=== PATIENT | female | born 1990 | race Caucasian/White ===

== ENCOUNTER 2020-03-26 15:51 | Emergency (ER) | payer OTHER, SELFPAY ==
--- NOTE | 2020-03-26 15:59 | ED.SKABFB ---
HPI - Skin/Abscess/Foreign Bdy General Chief complaint: Skin/Abscess/Foreign Body Stated complaint: pos skin infection Time Seen by Provider: 03/26/20 16:02 Source: patient and RN notes reviewed Mode of arrival: ambulatory Limitations: no limitations History of Present Illness HPI narrative: 30 year old female who presents to express care with complaints of lesion to the right distal forearm ulnar side which has become increasingly irritated in the past week. Patient states that she has had this lesion which resembles filiform wart which is 0.5cm in diameter with excoriation around base. Patient states that she has used OTC freeze off treatment, creams and patches to area but seems to keep getting bigger. Request antibiotic today due amount of irritation of skin around base of lesion. Patient states no tingling or numbness to fingers, strong radial pulse, nail beds sarahi briskly. complaint: lesion Onset (ago): month(s) (6) Tetanus up to date: yes Location: RUE Severity: mild Severity scale (1-10): 3 Quality: aching Pain Consistency: intermittent Relieving factors: none Exacerbating factors: other (picking of tissue) Context: other (wart) Associated symptoms: itching Treatments prior to arrival: OTC topical medication (freeze off, wart remover liquid and patches) Related Data Allergies Allergy/AdvReac Type Severity Reaction Status Date / Time No Known Allergies Allergy Verified 03/26/20 15:57 Review of Systems Review of Systems: Narrative: CONSTITUTIONAL: Denies fever, chills, or sweats. EYES: Denies visual changes, redness, or discharge. ENT: Denies rhinorrhea, congestion, sore throat, or otalgia. CARDIOVASCULAR: Denies chest pain, palpitations, or edema. RESPIRATORY: Denies cough or dyspnea. GASTROINTESTINAL: Denies abdominal pain, nausea, vomiting, or diarrhea. GENITOURINARY: Denies dysuria or hematuria. SKIN: filiform wart to right distal forearm MUSCULOSKELETAL: Denies back pain, joint pain, or myalgia. NEUROLOGIC: Denies headache, numbness, or weakness. PSYCHIATRIC: Denies anxiety or depression. All systems reviewed & are unremarkable except as noted in HPI and below PMFSH Surgical History Surgical History (Updated 03/26/20 @ 16:05 by Va Carbajal NP) H/O sinus surgery Family History Family History (Updated 03/26/20 @ 16:08 by Va Carbajal NP) Father Hypertension Heart disease Grandparent Diabetes mellitus Cerebrovascular accident Social History Social History (Updated 03/26/20 @ 17:08 by Va Carbajal NP) Smoking status: Never smoker Living arrangements: with family Gender identity (if verbalized by the patient): Female Comments At time of signature, agree with nursing past medical, surgical, social and family history. There is no relevant family history pertinent to the presenting complaint Exam Narrative: Exam Narrative: GENERAL: Well-appearing, well-nourished, and in no acute distress. HEAD: Normocephalic, atraumatic. EYES: PERRLA and EOMI. ENT: Nares clear, no rhinorrhea or epistaxis. Mucous membranes moist. NECK: Supple.no lymphadenopathy CHEST: Clear to auscultation. No respiratory distress. HEART: Regular rate and rhythm. No murmur heard. Normal peripheral pulses. ABDOMEN: Soft, nontender, nondistended, normal active bowel sounds. EXTREMITIES: Normal range of motion. No edema. SKIN: Warm, dry, raised filiform wart to right distal forearm ulnar side with irritated red tissue at base of lesion,itchy. NEURO: No focal deficits. Alert and oriented x3. MDM - Skin/Abscess/Foreign Bdy Differential Diagnosis Differential diagnosis: Likely abscess of skin or subcutaneous tissue, dermatophytosis and other (verrucae vulgaris) Medical Records Attestation: I reviewed the patient's medical records. Critical Care Time Critical Care Time Critical Care Time: No Discharge Plan Discharge Clinical Impression: Verrucae vulgaris Patient Disposition: Home, Self-Care C
[2020-03-26 16:02] VITALS: BP 121/68; PULSE 102; RESP 20; TEMP 36.6; O2SAT 100
== END 2020-03-26 16:33 | disposition home or self-care (01) ==
PROVIDERS: Emergency Provider Registered Nurse
DX: B07.9 Viral wart, unspecified (principal)
CPT/HCPCS: 99203; G0463

== ENCOUNTER 2022-03-01 09:42 | Outpatient (CLI) | payer OTHER, SELFPAY ==
[2022-03-01 18:55] LABS: Basophils Percent Auto 0.4 % (0.2-1.2); Eosinophils Absolute Auto 0.1 K/mm3 (0-0.3); Eosinophils Percent Auto 1.2 % (0-4.4); Hematocrit 42.3 % (37.0-47.0); Hemoglobin 13.5 g/dL (12.0-15.0); Immature Granulocyte Absolute 0.02 K/mm3 (0.00-0.031); Immature Granulocyte Percent A 0.3 % (0-0.5); Lymphocytes Absolute Auto 2.56 K/mm3 (0.9-3.2); Lymphocytes Percent Auto 33.5 % (18.3-44.2); Mean Corpuscular HGB Conc 31.9 g/dl (32-36); Mean Corpuscular Hemoglobin 28.3 pg (26-34); Mean Corpuscular Volume 88.7 fl (80-100); Mean Platelet Volume 11.1 fl (7.4-10.4); Monocytes Absolute Auto 0.5 K/mm3 (0.1-0.6); Monocytes Percent Auto 5.9 % (2.6-8.5); Neutrophils Absolute Auto 4.5 K/mm3 (1.3-6.7); Neutrophils Percent Auto 58.7 % (45.5-73.1); Platelet Count Result 310 k/mm3 (150-375); Red Blood Count 4.77 M/mm3 (4.2-5.4); Red Cell Distribution Width 12.8 % (11.5-14.5); White Blood Count 7.6 K/mm3 (4.5-10.0)
[2022-03-01 19:45] LABS: Alanine Aminotransferase 38 U/L (6-35); Alkaline Phosphatase 79 U/L (38-126); Anion Gap 9 mmol/L (8-16); Aspartate Amino Transferase 32 U/L (14-36); Bilirubin,Total 0.4 mg/dL (0.2-1.3); Blood Urea Nitrogen 14 mg/dL (7-17); Calcium 9.5 mg/dL (8.4-10.2); Carbon Dioxide 26 mmol/L (22-30); Chloride 104 mmol/L (98-107); Cholesterol 175 mg/dL (0-200); Estimated Glomerular Filt Rate > 60; Glucose 91 mg/dL (65-110); HDL Direct 64 mg/dL; Potassium 4.2 mmol/L (3.4-5.0); Sodium 139 mmol/L (137-145); Triglycerides 81 mg/dL (<150)
[2022-03-01 20:03] LABS: LDL Cholesterol Direct 58 mg/dL
== END 2022-03-01 09:43 | disposition home or self-care (01) ==
LOC: ANHGOSHLAB 09:43
PROVIDERS: PCP Nurse Practitioner; Visit Provider Nurse Practitioner
DX: E03.9 Hypothyroidism, unspecified (principal); Z13.6 Encounter for screening for cardiovascular disorders; Z13.220 Encounter for screening for lipoid disorders; E55.9 Vitamin D deficiency, unspecified; R53.83 Other fatigue; Z79.899 Other long term (current) drug therapy; F41.9 Anxiety disorder, unspecified
CPT/HCPCS: 36415; 80053; 80061; 82306; 84443; 85025

== ENCOUNTER 2024-12-24 12:31 | Emergency (ER) | payer OTHER, SELFPAY ==
--- NOTE | ~2024-12-24 | CT_ITS ---
CT abdomen pelvis w con Ordering provider: Isi Cheek MD History: 34 years Female with . pain, uti . Comparison: ` Technique: CT abdomen and pelvis with IV and without oral contrast. Automated exposure control and it erative reconstruction technique were employed. The dose-length product was 242.27 mGy-cm. 100 mL Omn ipaque 350 was given IV. Findings: VISUALIZED LOWER CHEST: Normal. Calcified granuloma in the left lung base. UPPER ABDOMINAL ORGANS: Liver: Normal. Gallbladder: Normal. Spleen: Normal. Stomach/duodenum: Normal. Pancreas: Normal. Adrenals: Normal. Kidneys: Normal. PELVIC ORGANS: The bladder is normal. IUD is seen in the uterus. BOWEL AND MESENTERY: Colon: No evidence of diverticulitis. The appendix is not demonstrated. Small Bowel: Normal. No obstruction. Peritoneum/mesentery: No free air. Trace of free fluid is seen in the pelvis. No mesenteric lymphaden opathy. RETROPERITONEUM: Normal aorta. No retroperitoneal lymphadenopathy. MUSCULOSKELETAL: Superficial soft tissues: The superficial soft tissues are normal. Bones: Normal spine. IMPRESSION: 1. No evidence of appendicitis, diverticulitis or intestinal obstruction. Reviewed, dictated and finalized at location A.
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
--- OUTSIDE RECORDS SUMMARY | 2024-12-24 12:34 | XMS_ITS | Clinical Summary ---
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 Gender Identity Not on file Sexual Orientation Not on file Plan of Treatment Health Maintenance Due Date Last Done Comments Hepatitis C Virus (HCV) Screening 1989 TdaP Immunization 1989 Hepatitis B Immunization (1 of 3 - 19+ 3-dose series) 01/10/2008 Pap Smear 2010 Cervical Cancer Screening (CCS) 2019 HPV/Cotest 2019 Influenza Immunization (#1) 2024 SARS-COV-2 Immunization ( - season) 2024 Respiratory Syncytial Virus (RSV) Immunization (Adult) (1 - 1-dose 75+ series) 01/10/2064 Meningococcal Immunization (ACWY) Aged Out No longer eligible based on patient's age to complete this topic Pneumococcal Immunization Combined Aged Out No longer eligible based on patient's age to complete this topic Rotavirus Immunization Aged Out No lo nger eligible based on patient's age to complete this topic Insurance MEDICAID AETNA [facility]
--- OUTSIDE RECORDS SUMMARY | 2024-12-24 12:34 | XMS_ITS | Encounter Summary ---
Author Organization [facility] Address [address] [facility] [place] [address] Care Team Providers Care Crane Hooker Name Role Phone Unavailable Primary Care Provider Unavailabl e Reason for Visit * Reason Onset Date Comments Question 12/30/2017 Encounter Details Date Type Department Care Team (Late st Contact Info) Description 12/30/2017 Telephone [facility] [address] [place] [address] Stacia Mccabe MD [address] [facility] [address] [place] [address] Question Social History Tobacco Use Types Packs/Day Years Used Date Smoking Tobacco: Never Smokeless Tobacco: Never Alcohol Use Standard Drinks/Week Comments No 0 (1 standard drink = 0.6 oz pur e alcohol) Comments No Sex and Gender Information Value Date Recorded Sex Assigned at Not on file 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 Answer Date of Assessment Author No 01/29/2017 3:47 AM Marlen Nayak RN * Is person blind or have serious difficulty seeing? Answer Date of Assessment Author No 01/29/2017 3:47 AM Marlen Nayak RN * Does person have serious difficulty walking/climbing stairs? Answer Date of Assessment Author No 01/29/2017 3:47 AM CDT Marlen Treadwell RN * Does person have difficulty dressing/bathing? Answer Date of Assessment Author No 01/29/2017 3:47 AM CDT Marlen Treadwell RN * Does person have difficulty doing errands alone? Answer Date of Assessment Author No 01/29/2017 3:47 AM CDT Marlen Treadwell RN documented as of this encounter Mental Status * Does person have difficulty concentrating/remembering/making decisions? Answer Entry Date Author No 01/29/2017 3:47 AM CDT Marlen Treadwell RN documented in this encounter Miscellaneous Notes * Telephone Encounter - Lynne Boateng RN - 12/30/2017 4:36 PM CDT Left voice mail for patient that Dr Mccabe office returning her call * Telephone Encounter - Rebeca Schultz - 12/30/2017 11:34 AM CDT Pt called in stating she would like to speak to Dr Mccabe or her nurse regarding questions she has about medications. Pt callback# [phone] documented in this encounter Plan of Treatment Not on file documented as of this encounter Visit Diagnoses Not on filedocumented in this encounter
--- OUTSIDE RECORDS SUMMARY | 2024-12-24 12:34 | XMS_ITS | Encounter Summary ---
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 Answer Date of Assessment Author No 01/29/2017 3:47 AM Marlen Nayak RN * Does person have difficulty doing errands alone? Answer Date of Assessment Author No 01/29/2017 3:47 AM Marlen Nayak RN documented as of this encounter Mental Status * Does person have difficulty concentrating/remembering/making decisions? Answer Entry Date Author No 01/29/2017 3:47 AM Marlen Nayak RN documented in this encounter Plan of Treatment Not on file documented as of this encounter Visit Diagnoses Not on filedocumented in this encounter
--- OUTSIDE RECORDS SUMMARY | 2024-12-24 12:34 | XMS_ITS | Referral Summary ---
Author Organization [facility] [address] [facility] Address [address] [place] [address] Care Team Providers Care Nutrition Educator Name Role Phone Unknown, Notinfile Primary Care Provider Unavail able Encounters Date Type Department Care Team Description 12/11/2024 5:55 PM CDT E-Visit [address] [address] Cierra Walsh, SURINDER Your Medications 12/11/2024 Patient Self-Triage [facility]/ Physicians [address] [place] [phone] Mychart, Generic Provider 11/27/2024 5:00 PM CDT Telemedicine [address] [address] Paula Marquez, SURINDER Recurrent cold sores (Primary Dx) 11/27/2024 Patient Self-Triage [facility]/ Physicians [address] [place] [phone] Mychart, Generic Provider 11/26/2024 Patient Self-Triage [facility]/ Physicians [address] [place] [phone] Mychart, Generic Provider 11/26/2024 10:45 AM CDT E-Visit [address] [address] Paula Marquez, SURINDER Your Medications 11/26/2024 Patient Self-Triage [facility]/ Physicians [address] [place] [phone] Mychart, Generic Provider 11/18/2024 Results Follow-[place] [address] [place] [address] Blanca Ge, 11/16/2024 Results Follow-Up [address] [place] [address] Blanca Ge DO 11/15/2024 3:43 PM CDT - 11/15/2024 11:59 PM CDT Hospital Encounter [facility] [address] [place] [address] Discharge Disposition: Discharge to home or self care 11/15/2024 2:10 PM CDT Lab [facility] [address] [place] [address] Dysuria 11/15/2024 Orders Only [facility] [address] [place] [address] Blanca Ge DO Dysuria (Primary Dx) 11/15/2024 1:20 PM CDT Procedure visit [facility] [address] [place] [address] Blanca Ge DO 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) (Primary Dx) 11/11/2024 Telephone [facility] [address] [place] [address] Blanca Ge DO Medical Question/Miscellaneo us 11/10/2024 11:00 AM CDT Ancillary Procedure [facility] [address] [place] [address] Pelvic pain in female 11/09/2024 Results Follow-Up [address] [place] [address] Blanca Ge DO 11/01/2024 2:04 PM CDT - 11/01/2024 11:59 PM CDT Hospital Encounter [facility] [address] [place] [address] Screening for malignant neoplasm of cervix; Screen for sexually transmitted diseases Discharge Disposition: Discharge to home or self care 11/01/2024 Orders Only [facility] [address] [place] [address] Blanca Ge DO Pelvic pain in female (Primary Dx) 11/01/2024 1:30 PM CDT Office Visit [facility] [address] [place] [address] Blanca Ge DO Encounter for annual routine gynecological examination (Primary Dx); Screen for sexually transmitted diseases; Screening for malignant neoplasm of cervix; Pelvic pain from Last 3 Months Allergies Active Allergy Reactions Criticality Noted Date Comments Nitrofurantoin Other (See comments) Low 07/11/2023 Flu like symptoms- fever, body aches, chills, nausea. All stopped when she stopped the medicine. Medications FLUoxetine (PROzac) 20 mg capsule Take 1 capsule (20 mg total) by mouth daily Active copper (ParaGard T 380A) 380 square mm IUD 1 each by intrauterine route 8 Active valACYclovir (VALTREX) 1 gram tabletIndicati ons:Recurrent cold sores Take 2 tabs (2000 mg) 2 times a days for 1 day as directed. 4 tablet 5 5 Active amoxicillin-cl avulanate (AUGMENTIN) 875-125 mg per tablet Take 1 tablet by mouth 2 (two) times a day 20 tablet 5 Active cephalexin (KEFLEX) 500 mg capsule Take 1 capsule (500 mg total) by mouth 2 (two) times a day for 5 days 10 capsule 5 12/02/19 25 benzonatate (TESSALON) 200 mg capsule Take 1 capsule (200 mg total) by mouth 3 (three) times a day as needed for cough for up to 7 days 20 capsule 5 12/19/19 25 Active Problems Problem Noted Date Diagnosed Date Cervical dysplasia 07/21/2017 Overview (07/11/2023): Overview: 10/2014 ASCUS cannot rule out HGSIL, colpo 11/01/14 neg, no biopsies done Pap 06/2016 NIL Immunizations Immunization Administration Dates Next Due Tdap 06/18/2015 Social History Tobacco Use Types Packs/Day Years Used Date Smoking Tobacco: Never Smokeless Tobacco: Never Tobacco Cessation:Counseling Given: Not Answered Comments No Sex and Gender Information Value Date Recorded Sex Assigned at Not on file Legal Sex Female 11:39 AM CDT Gender Identity Female 11/18/2023 11:45 AM CDT Sexual Orientation Straight 11/27/2024 6: 22 PM CDT Last Filed Vital Signs Vital Sign Reading Time Taken Comments Blood Pressure 134/78 11/15/2024 1:29 PM CDT Pulse 109 03/01/2024 3:35 PM CDT Temperature - - Respiratory Rate 18 03/01/2024 3:35 PM CDT Oxygen Saturation 98% 03/01/2024 3:35 PM CDT Inhaled Oxygen Concentration - - Weight 60.8 kg (134 lb) 11/15/2024 1:29 PM CDT Height 165.1 cm (5' 5 ) 11/01/2024 1:27 PM CDT Body Mass Index 22.3 11/01/2024 1:27 PM CDT Plan of Treatment Not on file Procedures Procedure Name Priority Date/Time Associated Diagnosis Comments SURGICAL PATHOLOGY Routine 11/15/2024 11 :44 AM CDT URINALYSIS, MICROSCOPIC ONLY Routine 11/15/2024 10:01 AM CDT Dysuria URINALYSIS AND REFLEX TO MICROSCOPIC AND CULTURE Routine 11/15/2024 10:01 AM CDT Dysuria US PELVIS W ENDOVAGINAL Schedule Routine, Read Routine (OP Routine) 11/10/2024 11:57 AM CDT Pelvic pain in female HIGH RISK HPV DNA DETECTION WITH GENOTYPING Routine 11/01/2024 3:50 PM CDT Screening for malignant neoplasm of cervix TRICHOMONAS VAGINALIS PCR Routine 11/01/2024 3:50 PM CDT Screen for sexually transmitted diseases N. GONORRHOEAE/C. TRACHOMATIS AMPLIFICATION Routine 11/01/2024 3:50 PM CDT Screen for sexually transmitted diseases PAP AND HIGH RISK HPV, REFLEX TO GENOTYPING Routine 11/01/2024 11:04 AM CDT Screening for malignant neoplasm of cervix from Last 3 Months Results * Surgical pathology (11/15/2024 11:44 AM CDT) Cervix, biopsy 11/15/2024 11 :44 AM CDT 11/16/2024 11:44 AM CDT Narrative 11/17/2024 6:08 PM CDT [facility] results best viewed via link to PDF [facility] Department of Pathology [address] [place] [address] Note to Patients: This report may contain a detailed description of human tissue sent by a health care provider to the laboratory for pathologic evaluation. The content of this report is essential for diagnosis and may provide important critical findings. This information may be unfamiliar to patients to review without a medical professional present. It is advised that the patient review this report in the presence of a health care provider who can answer questions and explain the details. Final Report Patient Name: JIN DELEON Address: [address] [place] [address] Gender: F : 1990 (Age: 34) Service: Location: N : [id number] [facility] #: [id number] Patient Type: SPECIMEN Taken: 11/15/2024 Received: 11/16/2024 Accessioned: 11/16/2024 Reported: 11/17/2024 Physician(s):Blanca Ge D.O. Diagnosis: A. Cervix, 6 o'clock, biopsy: - Low-grade squamous intraepithelial lesion (mild dysplasia/KHURRAM I). B. Cervix, 12 o'clock, biopsy: - Squamous metaplasia. Kenzie Joyce M.D. Report Electronically Reviewed and Signed Out By Kenzie Joyce M.D. 11/17/2024 18:08:04 Specimen(s) Received: A: Cervical at 6 o'clock B: Cervical at 12 o'clock Microscopic Description: A. Microscopic examination of the 6 o'clock cervical biopsy, examined at multiple levels show squamous mucosal fragment with changes that are consistent with a low-grade squamous intraepithelial lesion (mild dysplasia/KHURRAM I) there is expansion of the basal layer by cells with enlarged hyperchromatic nuclei with occasionally abundant amounts of clear cytoplasm, and rare mitoses within the lower third of the epithelium. B. Microscopic examination of the 12 o'clock cervical biopsy, examined at multiple levels show a single fragment of inflamed endocervical mucosa with areas of squamous metaplasia. No evidence of dysplasia or malignancy. Clinical History: LGSIL Procedure: colposcopy with biopsy Gross Description: The specimen is submitted in two formalin containers labeled JIN DELEON . A. The first container is labeled cervical 6 o'clock . It is 2 montelongo tissue fragments measuring 1 mm. All in A. B. The second container is labeled cervical 12 o'clock . It is an approximate 0.1 cc aggregate of transparent mucoid material and 2 minute flecks of montelongo tissue. All in B. T.A. Leonela Caceres, P.A./Jean-Claude Grove MD PhD REPORT IMAGES AND SCANNED DOCUMENTS, IF INCLUDED, ONLY VIEWABLE IN PDF VERSION OF REPORT The performance characteristics of some immunohistochemical stains, fluorescence in-situ hybridization tests and immunophenotyping by flow cytometry cited in this report (if any) were determined by the Surgical Pathology Department at [facility] as part of an ongoing quality control assistant program and in compliance with federally mandated regulations drawn from the Clinical Laboratory Improvement Act of 1988 (CLIA '88). Some of these tests rely on the use of analyte specific reagents and are subject to specific labeling requirements by the US Food and Drug Administration. Such diagnostic tests may only be performed in a facility that is certified by the Department of Health and Human Services as a high complexity laboratory under CLIA '88. The FDA has determined that such clearance or approval is not necessary. This test is used for clinical purposes. It should not be regarded as investigational or for research. Nevertheless, federal rules concerning the medical use of analyte specific reagents require that the following disclaimer be attached to the report: This test was developed and its performance characteristics determined by the Surgical Pathology Department [facility]. It has not been cleared or approved by the U. S. Food and Drug Administration. Note for decalcified specimens: This assay has not been validated on decalcified tissues. Results should be interpreted with caution given the possibility of false negativity on decalcified specimens Blanca Stearnsth Luma DO LAB PATHOLOGY ORDERABLE S Final Result * (ABNORMAL) Urinalysis reflex to microscopic and culture Urine (11/15/2024 10:01 AM CDT) Color, ur Yellow Yellow Comment:Testing performed by : [address] [address] Clarity, ur Turbid(A) Clear [facility] CH Comment:Testing performed by : [address], [address] Specific gravity, ur 1.009 1.003 - 1.030 [facility] CH Comment:Testing performed by : [address], [address] pH, urine 7.0 CERNER Comment: Interpretive Data U rine pH is affected by diet, medications, systemic acid-base disturbances, and renal tubular function. pH may affect urinary stone formation. For example, urine pH below 6.0 may help reduce the tendency for calcium phosphate stones and pH greater than 6.0 may reduce the tendency for uric acid stone formation. Source: [facility] [employer] Current Interpretive Data was last revised on 2017 Testing performed by: [address] [address] Protein, ur ql Negative Negative [facility] CH Comment:Testing performed by : [address] [address] Glucose, ur ql Negative Negative [facility] CH Comment:Testing performed by : [address] [address] Ketones, ur Negative Negative [facility] CH Comment:Testing performed by : [address] [address] Bilirubin, ur 2+(A) Negative [facility] Comment:Testing performed by : [facility], [address] [place] [address]., [address] Blood, ur Trace(A) Negative [facility] Comment:Testing performed by : [address] [address] Urobilinogen, ur <2.0 <2.0 mg/dL [facility] Comment:Testing performed by : [address] [address] Nitrite, ur Positive(A) Negative [facility] Comment:Testing performed by : [address] [address] Leukocyte esterase, ur Negative Negative [facility] Comment:Testing performed by : [address], [address] UA reflex comment Reflex to microscopic UA will be performed. [facility] Comment:Testing performed by : [address], [address] Urine 11/15/2024 10:0 1 AM CDT 11/15/2024 6:50 PM CDT Blanca Ge DO LAB MICROBIOLOGY - GENE RAL ORDERABLES Final Result [facility] [address] Department [place] [address] * (ABNORMAL) Urinalysis, microscopic only (11/15/2024 10:01 AM CDT) WBC, ur 0-5 0 - 5 /HPF Comment:Testing performed by : [address] [address] RBC, ur 0-2 0 - 2 /HPF [facility] Comment:Testing performed by : [address] [address] Epithelial cells, squamous, ur 1-5 0 - 5 /HPF [facility] Comment:Testing performed by : [address], [address] Mucous, ur Present(A) [facility] Comment:Testing performed by : [address] [address] Culture Reflex Comment Reflex conditions for urine culture (WBC >10) not met. [facility] PATEL Comment:Testing performed by : [facility], [address] [place]., [address] Urine 11/15/2024 10:0 1 AM CDT 11/15/2024 9:21 PM CDT us Blanca Ge DO LAB URINE ORDERABLES Fi nal Result [facility] [address] [address] Department [place] [address] * US Pelvis W Endovaginal (11/10/2024 11:57 AM CDT) Anatomical Region Laterality Modality Pelvis N/A Ultrasound 11/16/2024 6:41 AM CDT Narrative 11/16/2024 6:42 AM CDT EXAM DESCRIPTION: US PELVIS W ENDOVAGINAL REASON FOR STUDY: Pelvic Pain. Check IUD placement Pelvic pain check iud TECHNIQUE: Grayscale ultrasound of the pelvic contents was performed with transabdominal and transvaginal transducer. COMPARISON: None. FINDINGS: UTERUS: The uterus is anteverted. The uterus is homogenous in echotexture and measures 8.0 x 5.7 x 4.3 cm. ENDOMETRIUM: The endometrium measures 1.0 in thickness. There is an IUD that extends to the fundal endometrium. RIGHT OVARY: The right ovary measures 1.5 x 3.3 x 3.1 cm. There is documentation of color Doppler flow in the right ovary. The right ovary appears unremarkable. LEFT OVARY: The left ovary measures 1.5 x 1.2 x 2.4 cm. There is documentation of color Doppler flow in the left ovary. The left ovary appears unremarkable. PELVIC FLUID: There is no evidence of free fluid in the pelvis. OTHER: No other significant findings. IMPRESSION: No acute abnormality. IUD in expected position. THIS IS AN ELECTRONICALLY VERIFIED FINAL REPORT 11/16/2024 6:42 AM - Electronically signed by Neymar Del Rosario M.D. CH: AMANDA Report ID: [id number] Reading Location: [id number] Procedure Note Neymar Del Rosario Jr., MD - 11/16/2024 EXAM DESCRIPTION: US PELVIS W ENDOVAGINAL REASON FOR STUDY: Pelvic Pain. Check IUD placement Pelvic pain check iud TECHNIQUE: Grayscale ultrasound of the pelvic contents was performed with transabdominal and transvaginal transducer. COMPARISON: None. FINDINGS: UTERUS: The uterus is anteverted. The uterus is homogenous inechotexture and measures 8.0 x 5.7 x 4.3 cm. ENDOMETRIUM: The endometrium measures 1.0 in thickness. There is an IUD that extends to the fundal endometrium. RIGHT OVARY: The right ovary measures 1.5 x 3.3 x 3.1 cm. There is documentation of color Doppler flow in the right ovary. The right ovary appears unremarkable. LEFT OVARY: The left ovary measures 1.5 x 1.2 x 2.4 cm. There is documentation of color Doppler flow in the left ovary. The left ovaryappears unremarkable. PELVIC FLUID: There is no evidence of free fluid in the pelvis. OTHER: No other significant findings. IMPRESSION: No acute abnormality. IUD in expected position. THIS IS AN ELECTRONICALLY VERIFIED FINAL REPORT 11/16/2024 6:42 AM - Electronically signed by Neymar Del Rosario M.D. CH: AMANDA Report ID: [id number] Reading Location: [id number] Balnca Ge DO [facility] US PROCEDURES Final Result * (ABNORMAL) High Risk HPV DNA Detection with Genotyping (Molecular component) (11/01/2024 3:50 PM CDT) HPV HR 16 Not Detected Not Detected [facility] Comment:Testing performed by : [facility], [address] [place]., [address] HPV HR 18 Not Detected Not Detected [facility] PATEL Comment:Testing performed by : [facility], [address] [place]., [address] HPV HR Non 16/18 Detected(A) Not Detected [facility] PATEL Comment: Interpretive Data Nucleic acid amplification for detection of high-risk Human Papilloma virus (HPV) is performed by the [employer] 6800 HPV test. This assay specifically detects HPV-16 and HPV-18 genotypes. The following HPV genotypes are detected as high-risk HPV: HPV-31, 33, 35, ,39, 45, 51, 52, 56, 58, 59, 66, and 68. This assay has been approved by the [place] Food and Drug Administration for detection of HPV in cervical specimens collected by a physician using an endocervical brush/spatula or cervical broom and placed in the ThinPrep Pap Test PreservCyt collection containers. The performance characteristics of this test have been verified by the [facility] Molecular Infectious Disease laboratory. Correlate with separately reported cytology results, as applicable. Interpretive data last revised 23 Testing performed by: [facility], [address] [place]., [address] Endocervical 11/01/2024 3:50 PM CDT 11/02/2024 2:06 PM CDT Charlie ELENA CH - 11/04/2024 4:59 AM CDT Clinical history and diagnosis->Liquid-based PAP test with high risk HPV test- Z12.4 Number of vials->1 Testing type->Screening Last menstrual period (date if known)->10/20/24 Contraceptive use->IUD Blanca Ge DO LAB BODY FLUIDS AND STO OLS ORDERABLES Final Result [facility] [address] [address] Department [place] [address] [facility] * N. gonorrhoeae/C. trachomatis Amplification Thin prep-Endocervical (11/01/2024 3:50 PM CDT) C. trachomatis Not Detected [facility] Comment:Testing performed by : [facility], [address] [place]., [address] N. gonorrhoeae Not Detected [facility] Comment: Interpretive Data This assay detects Chlamydia trachomatis and Neisseria gonorrhoeae by nucleic acid amplification testing (NAAT). This assay has been cleared by the [place] Food and Drug administration. The performance characteristics of this test have been verified by the [facility] Molecular Infectious Disease laboratory. The performance characteristics of this test have not been evaluated in individuals less than 14 years of age. Current Interpretive Data was last revised on 2023. Testing performed by: [facility], [address] [place]., [address] Thin prep-Endocervica l 11/01/2024 3:50 PM CDT 11/02/2024 2:06 PM CDT Blanca Ge DO LAB MICROBIOLOGY - GENE RAL ORDERABLES Final Result Performing Organization Address City/[facility]/ZIP Co de Phone Number [facility] [address] [address] Department [place] [address] [facility] * Trichomonas vaginalis PCR Thin prep-Endocervical (11/01/2024 3:50 PM CDT) Trichomonas DNA Not Detected [facility] Comment: Interpretive Data This assay detects Trichomonas vaginalis by nucleic acid amplification testing (NAAT). This assay has been cleared by the [place] Food and Drug administration. The performance characteristics of this test have been verified by the [facility] Molecular Infectious Disease laboratory. The performance of this test has not been evaluated in individuals less than 18 years of age. Current Interpretive Data was last revised on 2023. Testing performed by: [facility], [address] [place]., [address] Thin prep-Endocervica l 11/01/2024 3:50 PM CDT 11/02/2024 2:06 PM CDT Blanca Ge DO LAB MICROBIOLOGY - GENE RAL ORDERABLES Final Result Performing Organization Address City/[facility]/ZIP Co de Phone Number [facility] [address] Department [place] [address] [facility] * (ABNORMAL) Pap and High Risk HPV and Genotyping (Cytology Component) (11/01/2024 11:04 AM CDT) Thin prep (Pap test) 11/01/2024 11:04 AM CDT 11/01/2024 11:04 AM CDT Narrative PATHOLOGY CH - 11/04/2024 9:35 PM CDT [facility] Department of Pathology [address] [place] [phone] Final Report with Addendum Note to Patients: This report may contain a detailed description of human tissue sent by a health care provider to the laboratory for pathologic evaluation. The content of this report is essential for diagnosis and may provide important critical findings. This information may be unfamiliar to patients to review without a medical professional present. It is advised that the patient review this report in the presence of a health care provider who can answer questions and explain the details. Patient Name: JIN DELEON Address: [address] [place] [address] Gender: F : 1990 (Age: 34) Service: Location: [facility] : [id number] [facility] #: [id number] Patient Type: [facility] SPECIMEN Taken: 11/01/2024 Received: 11/01/2024 Accessioned:: 11/02/2024 Reported: 11/04/2024 Physician(s): Felipe Flower D.O. Diagnosis: SOURCE OF SPECIMEN SCREENING THIN PREP IMAGED PAP w/ HPV: STATEMENT OF ADEQUACY - Specimen satisfactory for interpretation; endocervical/transformation zone component absent or insufficient GENERAL CATEGORIZATION: - Epithelial cell abnormality INTERPRETATION: - Low grade squamous intraepithelial lesion (LSIL) encompassing HPV/mild dysplasia/KHURRAM I STEVE Valenzuela(ASCP)Kenzie Joyce M.D. Report Electronically Reviewed and Signed Out By Kenzie Joyce M.D. 11/04/2024 21:35:26Addenda: HPV Test Interpretation HPV HR 16- Not Detected HPV HR 18- Not Detected HPV HR non 16/18- Detected Interpretive Data Nucleic acid amplification for detection of high-risk Human Papilloma virus (HPV) is performed by the [employer] 6800 HPV test. This assay specifically detects HPV-16 and HPV-18 genotypes. The following HPV genotypes are detected as high-risk HPV: HPV-31, 33, 35, 39, 45, 51, 52, 56, 58, 59, 66, and 68. This assay has been approved by the [place] Food and Drug Administration for detection of HPV in cervical specimens collected by a physician using an endocervical brush/spatula or cervical broom and placed in the ThinPrep Pap Test PreservCyt collection containers. The performance characteristics of this test have been verified by the [facility] Molecular Infectious Disease laboratory. Correlate with reported cytology results, as applicable. Interpretive data last revised 23 STEVE Valenzuela(ASCP)Report Electronically Reviewed and Signed Out By STEVE Valenzuela(ASCP) 11/04/2024 11:17:25 Specimen(s) Received: A: SCREENING THIN PREP IMAGED PAP w/ HPV Clinical History: Last Menstrual Period: 10/20/24 Contraceptive History: IUD The Pap test is a screening test used to aid in the detection of cervical cancer and its precursors. It should not be the sole means by which malignant and premalignant lesions are diagnosed. Both false negative and false positive results may occur. It also has poor sensitivity for the detection of endometrial lesions and should not be used to evaluate suspected endometrial abnormalities. For these reasons it is most important to obtain Pap tests at regular intervals. The performance characteristics of some immunohistochemical stains, fluorescence in-situ hybridization tests and immunophenotyping by flow cytometry cited in this report (if any) were determined by the Surgical Pathology Department at [facility] as part of an ongoing quality control assistant program and in compliance with federally mandated regulations drawn from the Clinical Laboratory Improvement Act of 1988 (CLIA '88). Some of these tests rely on the use of analyte specific reagents and are subject to specific labeling requirements by the US Food and Drug Administration. Such diagnostic tests may only be performed in a facility that is certified by the Department of Health and Human Services as a high complexity laboratory under CLIA '88. The FDA has determined that such clearance or approval is not necessary. This test is used for clinical purposes. It should not be regarded as investigational or for research. Nevertheless, federal rules concerning the medical use of analyte specific reagents require that the following disclaimer be attached to the report: This test was developed and its performance characteristics determined by the Surgical Pathology Department [facility]. It has not been cleared or approved by the U. S. Food and Drug Administration. Blanca Ge DO LAB CYTOLOGY ORDERABLES Final Result PATHOLOGY [address] [place] [address] from Last 3 Months Insurance [facility] [employer] [facility] Care Teams Nutrition Educator Relationship Specialty Start Date End Date Unknown, Notinfile PCP - General 09/22/23
--- OUTSIDE RECORDS SUMMARY | 2024-12-24 12:34 | XMS_ITS | Clinical Summary ---
Author Organization [address] lt Address [address] [place] [address] Care Team Providers Care Latin American Studies Director Name Role Phone Unknown, Notinfile Primary Care Provider Unavail able Allergies Active Allergy Reactions Criticality Noted Date [...] neg, no biopsies done Pap 06/2016 NIL Encounters Date Type Department Care Team Description 12/11/2024 5:55 PM CDT E-Visit [address] [phone] Cierra Walsh, SHIFTMAN Your Medications 12/11/2024 Patient Self-Triage [facility] Health[facility]/ Physicians [address] [place] [phone] Mychart, Generic Provider 11/27/2024 5:00 PM CDT Telemedicine [address] [phone] Paula Marquez, SURINDER Recurrent cold sores (Primary Dx) 11/27/2024 Patient Self-Triage [facility] [address] [place] [phone] Mychart, Generic Provider 11/26/2024 10:45 AM CDT E-Visit [address] [phone] Paula Marquez, SURINDER Your Medications 11/26/2024 Patient Self-Triage [facility] [address] [place] [phone] Mychart, Generic Provider 11/26/2024 Patient Self-Triage [facility] [address] [place] [phone] Mychart, Generic Provider 11/18/2024 Results Follow-Up [address] [address] Blanca Ge, DO 11/16/2024 Results Follow-Up [address] [address] Blanca Ge, DO 11/15/2024 3:43 PM CDT - 11/15/2024 11:59 PM CDT Hospital Encounter [address] [address] Discharge Disposition: Discharge to home or self care 11/15/2024 2:10 PM CDT Lab [facility] [address] [place] [address] Dysuria 11/15/2024 1:20 PM CDT Procedure visit [facility] [address] [place] [address] Blanca Ge DO 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) (Primary Dx) 11/15/2024 Orders Only [facility] [address] [place] [address] Blanca Ge DO Dysuria (Primary Dx) 11/11/2024 Telephone [facility] [address] [place] [address] Blanca Ge DO Medical Question/Miscellaneo us 11/10/2024 11:00 AM CDT Ancillary Procedure [facility] [address] [place] [address] Pelvic pain in female 11/09/2024 Results Follow-Up [address] [address] Blanca Ge DO 11/01/2024 2:04 PM CDT - 11/01/2024 11:59 PM CDT Hospital Encounter [facility] [address] [place] [address] Screening for malignant neoplasm of cervix; Screen for sexually transmitted diseases Discharge Disposition: Discharge to home or self care 11/01/2024 1:30 PM CDT Office Visit [facility] [address] [place] [address] Blanca Ge DO Encounter for annual routine gynecological examination (Primary Dx); Screen for sexually transmitted diseases; Screening for malignant neoplasm of cervix; Pelvic pain 11/01/2024 Orders Only [facility] [address] [place] [phone] Blanca Ge DO Pelvic pain in female (Primary Dx) from Last 3 Months Immunizations Immunization Administration Dates Next Due Tdap 06/18/2015 Surgical History Surgery Date Site/Laterality Comments SECTION Medical History Medical History Date Comments Depression Social History Tobacco Use Types Packs/Day Years Used Date Smoking Tobacco: Never Smokeless Tobacco: Never Tobacco Cessation:Counseling Given: Not Answered Comments No Sex and Gender Information Value Date Recorded Sex Assigned at Not on file Legal Sex Female 11:39 AM CDT Gender Identity Female 11/18/2023 11:45 AM CDT Sexual Orientation Straight 11/27/2024 6: 22 PM CDT Obstetrics History Para Term AB IAB SAB Ectopic Multiple Livin g Live Births 5 3 3 0 2 0 2 0 0 3 3 Date Outcome GA Total Labor Labor/2nd/3rd Weight Sex Type Anes PTL Fouzia A1 A5 Name Clin SAB SAB 2012 Term 39w 0d 3.062 kg (6 lb 12 oz) M C-S j incis Epidur al N Livin g Complications:Failure to Pro jonnie in First Stage 2014 Term 40w 3d 0h 07m 0h 07m 3.275 kg (7 lb 3.5 oz) F Epidur al Livin g 6 9 Coy er Said DO Delivery Location:[facility] 2016 Term 40w 3d 0h 02m 0h 02m 2.98 kg (6 lb 9.1 oz) F Epidur al Livin g 9 9 TOSOV TONNY,B MEI GIRL BROOK E Stacia Maher MD Delivery Location:[facility] Last Filed Vital Signs Vital Sign Reading [...] 11/01/2024 1:27 PM CDT Plan of Treatment Health Maintenance Due Date Last Done Comments Depression Screening 1990 Hepatitis C Screening 1990 Varicella Vaccines (1 of 2 - 13+ 2-dose series) 2002 Hepatitis B Screening 2007 Influenza Vaccine (Season Ended) 2025 DTaP/Tdap/Td Vaccine (2 - Td or Tdap) 06/18/2025 06/18/2015 Cervical Cancer Screening 11/01/20252024, 11/01/2024 Regular Well Visit/Exam 18-64 11/01/2025 11/01/2024 HPV Vaccines Aged Out No longer eligi ble based on patient's age to complete this topic Pneumococcal vaccine <65 Aged Out No longer eligible based on patient's age to complete this topic Procedures Procedure Name Priority Date/Time Associated Diagnosis [...] AM CDT Narrative 11/17/2024 6:08 PM CDT EPIC results best viewed via link to PDF [facility] Department of Pathology [address] [place] [id number] Note to Patients: This report may [...] Final Report Patient Name: JIN DELEON Address: [address] [place] [address] Gender: F : 1990 (Age: 34) Service: Location: [facility] : [id number] [facility] #: [id number] Patient Type: SPECIMEN Taken: 11/15/2024 Received: 11/16/2024 [...] determined by the Surgical Pathology Department at [facility] as part of an ongoing quality assurance qa lab technician program and in compliance with federally mandated [...] characteristics determined by the Surgical Pathology Department [facility]. It has not been cleared or approved by the U. S. Food and Drug Administration. Note for decalcified specimens: This assay has not been validated on decalcified tissues. Results should be interpreted with caution given the possibility of false negativity on decalcified specimens Blanca Ge DO LAB PATHOLOGY ORDERABLE S Final Result * (ABNORMAL) Urinalysis reflex to microscopic and culture Urine (11/15/2024 10:01 AM CDT) Color, ur Yellow Yellow Comment:Testing performed by : [address] [address] Clarity, ur Turbid(A) Clear [facility] Comment:Testing performed by : [facility], [address] [place] [address], [address] Specific gravity, ur 1.009 1.003 - 1.030 [facility] CH Comment:Testing performed by : [address], [address] pH, urine 7.0 [facility] CH Comment: Interpretive Data U rine pH is affected by diet, medications, systemic acid-base disturbances, and renal tubular function. pH may affect urinary stone formation. For example, urine pH below 6.0 may help reduce the tendency for calcium phosphate stones and pH greater than 6.0 may reduce the tendency for uric acid stone formation. Source: [facility] Current Interpretive Data was last revised on 2017 Testing performed by: [address] [address] Protein, ur ql Negative Negative [facility] Comment:Testing performed by : [address], [address] Glucose, ur ql Negative Negative [facility] Comment:Testing performed by : [address], [address] Ketones, ur Negative Negative [facility] Comment:Testing performed by : [address] [address] Bilirubin, ur 2+(A) Negative [facility] Comment:Testing performed by : [address], [address] Blood, ur Trace(A) Negative [facility] Comment:Testing performed by : [address], [address] Urobilinogen, ur <2.0 <2.0 mg/dL [facility] Comment:Testing performed by : [address] [address] Nitrite, ur Positive(A) Negative [facility] Comment:Testing performed by : [address], [address] Leukocyte esterase, ur Negative Negative [facility] Comment:Testing performed by : [address], [address] UA reflex comment Reflex to microscopic UA will be performed. [facility] Comment:Testing performed by : [address], [address] Urine 11/15/2024 10:0 1 AM CDT 11/15/2024 6:50 PM CDT us Blanca Ge DO LAB MICROBIOLOGY - GENE RAL ORDERABLES Final Result [facility] [address] Department [place] [address] * (ABNORMAL) Urinalysis, microscopic only (11/15/2024 10:01 AM CDT) WBC, ur 0-5 0 - 5 /HPF Comment:Testing performed by : [address], [address] RBC, ur 0-2 0 - 2 /HPF [facility] Comment:Testing performed by : [address], [address] Epithelial cells, squamous, ur 1-5 0 - 5 /HPF [facility] Comment:Testing performed by : [address], [address] Mucous, ur Present(A) [facility] Comment:Testing performed by : [address], [address] Culture Reflex Comment Reflex conditions for urine culture (WBC >10) not met. [facility] Comment:Testing performed by : [address], [address] Urine 11/15/2024 10:0 1 AM CDT 11/15/2024 9:21 PM CDT us Blanca Ge DO LAB URINE ORDERABLES Fi nal Result [facility] [address] [address] Department [place] [address] * US Pelvis W Endovaginal (11/10/2024 11:57 [...] Del Rosario M.D. CH: AMANDA Report ID: [id number] Reading Location: [id number] Procedure Note Neymar Del Rosario Jr., MD [...] Del Rosario M.D. CH: AMANDA Report ID: [id number] Reading Location: [place] [address] us Blanca Ge DO [facility] US PROCEDURES Final Result * (ABNORMAL) High Risk HPV DNA Detection with Genotyping (Molecular component) (11/01/2024 3:50 PM CDT) HPV HR 16 Not Detected Not Detected [facility] Comment:Testing performed by : [facility], [address] [facility] [place]., [address] HPV HR 18 Not Detected Not Detected [facility] Comment:Testing performed by : [facility], [address] [facility] [place]., [address] HPV HR Non 16/18 Detected(A) Not Detected [...] this test have been verified by the [facility] Molecular Infectious Disease laboratory. Correlate with separately reported cytology results, as applicable. Interpretive data last revised 23 Testing performed by: [facility], [address] [place]., [address] Endocervical 11/01/2024 3:50 PM CDT 11/02/2024 2:06 PM CDT Narrative [facility] - 11/04/2024 4:59 AM CDT Clinical history and diagnosis->Liquid-based PAP test with high risk HPV test- Z12.4 Number of vials->1 Testing type->Screening Last menstrual period (date if known)->10/20/24 Contraceptive use->IUD Blanca Ge DO LAB BODY FLUIDS AND STO OLS ORDERABLES Final Result [facility] [address] [address] [address] Department [place] [address] [facility] * N. gonorrhoeae/C. trachomatis Amplification Thin prep-Endocervical (11/01/2024 3:50 PM CDT) C. trachomatis Not Detected [facility] Comment:Testing performed by : [facility], [address] [place] [address]., [address] N. gonorrhoeae Not Detected [facility] Comment: Interpretive Data This assay detects Chlamydia trachomatis and Neisseria gonorrhoeae by nucleic acid amplification testing (NAAT). This assay has been cleared by the [place] Food and Drug administration. The performance characteristics of this test have been verified by the [facility] Molecular Infectious Disease laboratory. The performance characteristics of this test have not been evaluated in individuals less than 14 years of age. Current Interpretive Data was last revised on 2023. Testing performed by: [facility], [address] [place]., [address] Thin prep-Endocervica l 11/01/2024 3:50 PM CDT 11/02/2024 2:06 PM CDT Blanca Ge LAB MICROBIOLOGY - GENE RAL ORDERABLES Final Result Performing Organization Address City/[facility]/ZIP Co de Phone Number [facility] [address] [address] Department [place] [address] [facility] * Trichomonas vaginalis PCR Thin prep-Endocervical (11/01/2024 3:50 PM CDT) Trichomonas DNA Not Detected [facility] Comment: Interpretive Data This assay detects Trichomonas vaginalis by nucleic acid amplification testing (NAAT). This assay has been cleared by the [place] Food and Drug administration. The performance characteristics of this test have been verified by the [facility] Molecular Infectious Disease laboratory. The performance of this test has not been evaluated in individuals less than 18 years of age. Current Interpretive Data was last revised on 2023. Testing performed by: [facility], [address] [place]., [address] Thin prep-Endocervica l 11/01/2024 3:50 PM CDT 11/02/2024 2:06 PM CDT Blanca Ge LAB MICROBIOLOGY - GENE RAL ORDERABLES Final Result Performing Organization Address City/[facility]/ZIP Co de Phone Number [facility] [address] [address] [place] [address] [facility] * (ABNORMAL) Pap and High Risk HPV and Genotyping (Cytology Component) (11/01/2024 11:04 AM CDT) Thin prep (Pap test) 11/01/2024 11:04 AM CDT 11/01/2024 11:04 AM CDT Narrative PATHOLOGY CH - 11/04/2024 9:35 PM CDT [facility] Department of Pathology [address] [place], [place] [id number] Final Report with Addendum Note to Patients: [...] the details. Patient Name: JIN DELEON Address: [address] [place] [address] Gender: F : 1990 (Age: 34) Service: Location: N : [id number] Hospital #: [id number] Patient Type: [facility] SPECIMEN Taken: 11/01/2024 Received: 11/01/2024 Accessioned:: 11/02/2024 [...] this test have been verified by the [facility] Molecular Infectious Disease laboratory. Correlate with [...] determined by the Surgical Pathology Department at [facility] as part of an ongoing quality assurance qa lab technician program and in compliance with federally mandated [...] characteristics determined by the Surgical Pathology Department [facility]. It has not been cleared or approved by the U. S. Food and Drug Administration. us Blanca Ge DO LAB CYTOLOGY ORDERABLES Final Result PATHOLOGY [address] [place] [address] from Last 3 Months Insurance [employer] [place] [employer] [employer] [place] [place] Care Teams Latin American Studies Director Relationship Specialty Start Date End Date Unknown, Notinfile PCP - General 09/22/23
--- OUTSIDE RECORDS SUMMARY | 2024-12-24 12:34 | XMS_ITS | Clinical Summary ---
Author Organization [facility] Address [address] [place] [address] Care Team Providers Care Signal Mechanic Name Role Phone Unavailable Primary Care Provider Unavailabl e Source Comments [facility],non-owned Affiliates and Associated Physician Practices is amultiple site organization consisting of ambulatory clinics and hospital sitesin [place], [place], [place] and [place]. This disclosure is being madepursuant to the Care Everywhere program and may not contain all information available regarding this patient. Last updated 18.[facility] Allergies No known active allergies Medications * Be aware that medications may not be up to date on this document. Alwaysverify current medications with the patient. PARAGARD INTRAUTERINE COPPER IUD 8 Active Probiotic Product (PROBIOTIC DAILY PO) Active escitalopram (LEXAPRO) 10 MG tablet Take 1 tablet by mouth once daily 30 tablet 11 9 Active FLUoxetine (PROZAC) 10 MG capsuleIndication s:Depression Take 1 capsule by mouth once daily Reasons: Depression 30 capsule 11 9 Active Active Problems Problem Noted Date Diagnosed Date Cervical dysplasia 07/21/2017 Overview (07/23/2018): Overview: 10/2014 ASCUS cannot rule out HGSIL, colpo 11/01/14 neg, no biopsies done Pap 06/2016 NIL History of section 01/29/2017 Resolved Problems Problem Noted Date Diagnosed Date Resolved Date Threatened labor at term 07/17/2015 Prolonged latent phase of labor 01/29/2017 Tachycardia 01/29/2017 care following vaginal delivery 01/29/2017 Vaginal after delivery 01/29/2017 Immunizations Immunization Administration Dates Next Due TDAP (7yrs+) 06/18/2015 Family History Medical History Relation Name Comments Hypertension Father Relation Name Status Comments Father Social History Tobacco Use Types Packs/Day Years Used Date Smoking Tobacco: Never Smokeless Tobacco: Never Tobacco Cessation:Counseling Given: Yes Alcohol Use Standard Drinks/Week Comments No 0 (1 standard drink = 0.6 oz pur e alcohol) Comments No Sex and Gender Information Value Date Recorded Sex Assigned at Not on file Legal Sex Female 5:42 AM [employer] Gender Identity Not on file Sexual Orientation Not on file Last Filed Vital Signs Vital Sign Reading Time Taken Comments Blood Pressure 118/76 09/25/2018 1:44 PM [employer] Pulse 113 11/18/2017 12:19 PM CDT Temperature 36.8 C (98.2 F) 11/18/2017 12:19 PM CDT Respiratory Rate 16 11/18/2017 12:19 PM CDT Oxygen Saturation 98% 11/18/2017 12:19 PM CDT Inhaled Oxygen Concentration - - Weight 61.2 kg (135 lb) 09/25/2018 1:44 PM [facility] [employer] Height 165.1 cm (5' 5 ) 09/25/2018 1:44 PM [facility] [employer] Body Mass Index 22.47 09/25/2018 1:44 PM [employer] Plan of Treatment Health Maintenance Due Date Last Done Comments HEPATITIS C SCREENING 01/05/2007 HEPATITIS B VACCINE (1 of 3 - 19+ 3-dose series) 01/10/2008 COVID-19 VACCINE ( - 2023-2 5 season) 2024 DEPRESSION SCREENING 08/18/2024 INFLUENZA VACCINE (Season Ended) 2025 DTAP/TDAP/TD VACCINES (2 - T d or Tdap) 06/18/2025 06/18/2015 ZOSTER VACCINE (1 of 2) 2039 HIV SCREENING Completed 06/26/2016, 05/03/2015 HIB VACCINE Aged Out No longer eligi ble based on patient's age to complete this topic HPV VACCINE Aged Out No longer eligi ble based on patient's age to complete this topic MENINGOCOCCAL (Group B) VACCINE SHARED DECISION-MAKING Aged Out No longer eligible based on patient's age to complete this topic MENINGOCOCCAL GROUPS A/C/Y/W VACCINE Aged Out No longer eligible b ased on patient's age to complete this topic PNEUMOCOCCAL VACCINE Aged Out No long er eligible based on patient's age to complete this topic Procedures Procedure Name Priority Date/Time Associated Diagnosis Comments HIV-1 HIV-2 ANTIGEN/ANTIBODY Routine 06/26/2016 4:04 PM [employer] from Last 3 Months or Most Recently Relevant to Health Maintenance Results * HIV-1 HIV-2 ANTIGEN/ANTIBODY (06/26/2016 4:04 PM [employer]) Pathologist [facility] HIV Antigen/Antibody 4th Generation NON-REACT KANE NON-REACT KANE [facility] ([facility]) Comment: HIV-1 antigen and HIV-1/HIV-2 antibodies were not detected. There is no laboratory evidence of HIV infection. PLEASE NOTE: This information has been disclosed to you from records whose confidentiality may be protected by state law. If your state requires such protection, then the state law prohibits you from making any further disclosure of the information without the specific written consent of the person to whom it pertains, or as otherwise permitted by law. A general authorization for the release of medical or other information is NOT sufficient for this purpose. For additional information please refer to http://education.ConnectSoft/faq/GZW504 (This link is being provided for informational/ educational purposes only.) The performance of this assay has not been clinically validated in patients less than 2 years old. Test Performed at: [facility] [id number] [place] [address] MARCUS ROMERO DO,MPH 06/26/2016 4:04 PM [facility] [employer] 06/26/2016 4:04 PM [employer] Stacia Mccabe MD LAB - HEMATOLOGY ORDERABLES Edit ed Result - Final [facility] ([facility]) [id number] from Last 3 Months or Most Recently Relevant to Health Maintenance Insurance [facility] [employer] [facility] Address: [place] [phone] [place] [address] [facility] Address: [facility] [address] [place] [address] Advance Directives * Full Code (Latest Code Status on File) Date Activated Date Inactivated Comments 01/29/2017 3:34 AM 01/31/2017 4:06 PM * Full Code Date Activated Date Inactivated Comments 07/17/2015 10:04 PM 07/20/2015 2:53 PM * Full Code Date Activated Date Inactivated Comments 07/17/2015 7:56 PM 07/17/2015 10:04 PM * Full Code Date Activated Date Inactivated Comments 07/08/2015 12:52 AM 07/08/2015 2:04 AM * Full Code Date Activated Date Inactivated Comments 07/05/2015 2:29 PM 07/05/2015 4:37 PM
[2024-12-24 12:39] VITALS: BP 117/72; PULSE 77; RESP 16; TEMP 36.6; O2SAT 100
--- NOTE | 2024-12-24 13:49 | ED.GENADULT ---
HPI - General Adult General Chief complaint: Unspecified Stated complaint: requesting CT scan Time Seen by Provider: 12/24/24 13:47 Source: patient Mode of arrival: ambulatory Limitations: no limitations History of Present Illness HPI narrative: 34 years old white female came to the ED requesting CT scan of the abdomen. Patient was seen at urgent care last night and was told that she have kidney infection and need to go to the emergency room to get CT scan her out pyelonephritis. Patient report fever, body aches last night. Currently patient feeling weak and tired. She denies any fever, chills, nausea, vomiting. She reports slight suprapubic tenderness, no radiation of pain. Patient was seen at urgent care last night, started on Bactrim 100 b.i.d. for 7 days. Related Data Home Medications ?Medication ?Instructions ?Recorded ?Confirmed ?Last Taken ?Type loratadine 10 mg tablet (Claritin) 10 mg PO DAILY PRN 04/02/22 11/06/22 Unknown History fluticasone propionate 50 1 spray intranasal DAILY PRN 04/30/22 11/06/22 Unknown History mcg/actuation nasal spray,suspension (Flonase Allergy Relief) lisdexamfetamine 40 mg capsule 40 mg PO QAM 11/05/22 11/06/22 Unknown History (Vyvanse) Allergies Allergy/AdvReac Type Severity Reaction Status Date / Time No Known Allergies Allergy Verified 08/06/22 14:29 Review of Systems Review of Systems: All systems reviewed & are unremarkable except as noted in HPI and below PMFSH Past Medical History Medical History ADHD Anxiety Surgical History Surgical History H/O sinus surgery Family History Family History Father Hypertension Heart disease Grandparent Diabetes mellitus Cerebrovascular accident Other Anxiety Depression Social History Social History Smoking status: Never smoker Alcohol intake: never Substance use: never Substance use type: does not use Lack of Transportation: No Lack of Food: Never True Current Housing: I Have Housing Concerned About Future Housing: No Difficulty Paying Gas/Electric Bills: No Difficulty Paying for Meds: No Currently Unemployed: No Education: Master's Degree or Higher Difficulty w/ Childcare or Family Care: No Living arrangements: with family Occupation/Education: occupation Gender identity (if verbalized by the patient): Female Agree to blood products: Yes Exam Narrative: General appearance: Well-developed, well-nourished Skin: Normal color Head: Normocephalic, nontraumatic Eyes: Clear conjunctiva ENT: Oropharynx normal, ears normal, nose normal Neck: Supple, nontender Chest and respiratory: Airway patent, no respiratory distress, no accessory muscle use Heart: Regular rate/rhythm Abdomen: Soft, slight suprapubic tenderness, no guarding or rebound, no organomegaly, quiet bowel sounds Vascular: Normal peripheral pulses, normal capillary refill. Musculoskeletal: Normal range of motion, nontender back Neurologic: Alert and oriented ?3, ADMISSION LIAISON is normal as tested, no gross motor deficit Course Vital Signs Vital signs: Vital Signs Temperature 36.6 C 12/24/24 12:39 Pulse Rate 77 12/24/24 12:39 Respiratory Rate 16 12/24/24 12:39 Blood Pressure 117/72 12/24/24 12:39 Pulse Oximetry 100 12/24/24 12:39 Temperature 36.6 C 12/24/24 12:39 Pulse Rate 77 12/24/24 12:39 Respiratory Rate 16 12/24/24 12:39 Blood Pressure 117/72 12/24/24 12:39 Pulse Oximetry 100 12/24/24 12:39 Medical Decision Making [facility] Narrative Medical decision making narrative: Patient came with urinary symptoms and fever started last night, was discharged on Bactrim, and was told to come to the emergency room to rule out pyelonephritis, patient denies any nausea or vomiting Vital signs are stable Physical examination showing slight suprapubic tenderness Differential diagnosis urinary tract infection, Blood workup today includes CBC, CMP showed no significant abnormality Urinalysis showed 1+ leukocyte Estrace CT abdomen and pelvis with IV contrast showed no acute abnormalities Diagnosis urinary tract infection Discharged on Pyridium, continue Bactrim The pt was discharged to home.the pt,s condition upon discharge was fair,education was provided to the pt in reference to the final impression,discharge study results,treatment,prognosis and need for follow up . Vital Signs Vital Signs: Vital Signs Temperature 36.6 C 12/24/24 12:39 Pulse Rate 77 12/24/24 12:39 Respiratory Rate 16 12/24/24 12:39 Blood Pressure 117/72 12/24/24 12:39 Pulse Oximetry 100 12/24/24 12:39 Temperature 36.6 C 12/24/24 12:39 Pulse Rate 77 12/24/24 12:39 Respiratory Rate 16 12/24/24 12:39 Blood Pressure 117/72 12/24/24 12:39 Pulse Oximetry 100 12/24/24 12:39 Lab Data 12/24/24 14:25 12/24/24 14:25 Labs: Lab Results 12/24/24 12/24/24 Range/Units 14:25 14:38 WBC 6.6 (4.5-10.0) K/mm3 RBC 4.39 (4.2-5.4) M/mm3 Hgb 13.0 (12.0-15.0) g/dL Hct 39.4 (37.0-47.0) % MCV 89.7 (80-100) fl MCH 29.6 (26-34) pg MCHC 33.0 (32-36) g/dl RDW 12.3 (11.5-14.5) % Plt Count 220 (150-375) k/mm3 MPV 9.0 (7.4-10.4) fl Immature Gran % (Auto) 0.5 (0-0.5) % Neut % (Auto) 66.7 (45.5-73.1) % Lymph % (Auto) 23.3 (18.3-44.2) % [place] % (Auto) 7.8 (2.6-8.5) % Eos % (Auto) 1.2 (0-4.4) % Baso % (Auto) 0.5 (0.2-1.2) % Lymph # (Auto) 1.53 (0.9-3.2) K/mm3 [place] # (Auto) 0.5 (0.1-0.6) K/mm3 Eos # (Auto) 0.1 (0-0.3) K/mm3 Baso # (Auto) 0.0 (0.0-0.1) K/mm3 Abs Immat Gran (auto) 0.03 (0.00-0.031) K/mm3 Absolute Neuts (auto) 4.4 (1.3-6.7) K/mm3 Absolute Nucleated RBC 0.000 (0.0-0.012) K/mm3 Nucleated RBC % 0.0 (0.0-0.2) % Sodium 136 L (137-145) mmol/L Potassium 3.9 (3.4-5.0) mmol/L Chloride 101 (98-107) mmol/L Carbon Dioxide 27 (22-30) mmol/L Anion Gap 8 (4-12) mmol/L BUN 9 D (7-17) mg/dL Creatinine 0.81 (0.7-1.0) mg/dL Estim Creat Clear Calc 76 ml/min Estimated GFR > 60 (59 - ) Glucose 86 (65-110) mg/dL Calcium 9.2 (8.4-10.2) mg/dL Total Bilirubin 0.5 (0.2-1.3) mg/dL AST 34 (14-36) U/L ALT 30 (6-35) U/L Alkaline Phosphatase 65 (38-126) U/L Total Protein 8.0 (6.3-8.2) g/dL Albumin 4.7 (3.5-5.1) g/dL Lipase 44 (23-300) U/L Urine Color Yellow (Yellow) Urine Appearance Clear (Clear) Urine pH 6.5 (5.0-9.0) Ur Specific [place] 1.003 (1.001-1.035) Urine Protein Negative (Negative) mg/dL Urine Glucose (UA) Negative (Negative) mg/dL Urine Ketones Negative (Negative) mg/dL Ur Blood (Man) 1+ H (Negative) Urine Nitrate Negative (Negative) Urine Bilirubin Negative (Negative) Urine Urobilinogen 0.2 (<2.0) mg/dL Add Ur Microanalysis Reviewed Leukocyte Esterase Rfl 1+ H (Negative) MADAI/UL Urine RBC 0-2 (0-2) /hpf Urine WBC 6-10 H (0-3) /hpf Ur Squamous Epith Cells None seen (Few) /hpf Urine Bacteria 1+ H /hpf Urine Casts 0-2 POC Urine HCG, Qual Negative (Negative) Imaging Data Radiologist's impression: Impressions Abdomen/Pelvis CT 12/24/24 15:33 IMPRESSION: 1. No evidence of appendicitis, diverticulitis or intestinal obstruction. Critical Care Time Critical Care Time Critical Care Time: No Discharge Plan Discharge Clinical Impression: Family history of urinary tract infection Patient Disposition: Home Condition: Stable Instructions: Urinary Tract Infection in Women (DC), Dysuria (ED) Additional Instructions: Return if symptoms are worsening , call your family physician for appointment, take Tylenol, ibuprofen as as needed for aches and pain, continue home medications. Patient Language: Greenlandic Prescriptions: New phenazopyridine [Pyridium] 200 mg tablet 200 mg PO TID PRN (Reason: pain) Qty: 6 0RF No Action loratadine [Claritin] 10 mg tablet 10 mg PO DAILY PRN fluticasone propionate [Flonase Allergy Relief] 50 mcg/actuation spray,suspension 1 spray intranasal DAILY PRN Rx Instructions: administer into each nostril Vyvanse 40 mg capsule 40 mg PO QAM buspirone 5 mg tablet 5 mg PO TID Qty: 90 1RF amoxicillin-pot clavulanate 875-125 mg tablet 1 tablet PO BID Qty: 20 0RF fluoxetine 20 mg capsule 20 mg PO DAILY Qty: 90 1RF Follow-up/Referrals: Peter Rivera MD [Primary Care Provider] -
--- OUTSIDE RECORDS SUMMARY | 2024-12-24 14:01 | XMS_ITS | Clinical Summary ---
Author Organization [address] lt Address [address] [place] [address] Care Team Providers Care Heater Installer Name Role Phone Unknown, Notinfile Primary Care [...] Team Description 12/11/2024 5:55 PM CDT E-Visit [address] [address] Cierra Walsh, BLACK OFF WORKER Your Medications 12/11/2024 Patient Self-Triage [facility] [address] [place] [phone] Mychart, Generic Provider 11/27/2024 5:00 PM CDT Telemedicine [address] [phone] Paula Marquez, SURINDER Recurrent cold sores (Primary Dx) 11/27/2024 Patient Self-Triage [facility] [address] [place] [phone] Mychart, Generic Provider 11/26/2024 10:45 AM CDT E-Visit [address] [phone] Paula Marquez, SURINDER Your Medications 11/26/2024 Patient Self-Triage [facility] [address] [place] [phone] Mychart, Generic Provider 11/26/2024 Patient Self-Triage [facility] [address] [place] [phone] Mychart, Generic Provider 11/18/2024 Results Follow-Up [address] [address] Blanca Ge, DO 11/16/2024 Results Follow-Up [address] [address] Blanca Ge, DO 11/15/2024 3:43 PM CDT - 11/15/2024 11:59 PM CDT Hospital Encounter [address] [address] Discharge Disposition: Discharge to home or self care 11/15/2024 2:10 PM CDT Lab [facility] [address] [place] [address] Dysuria 11/15/2024 1:20 PM CDT Procedure visit [facility] [address] [place] [address] Blanca Ge DO 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) (Primary Dx) 11/15/2024 Orders Only [facility] [address] [place] [address] Blanca Ge DO Dysuria (Primary Dx) 11/11/2024 Telephone [facility] [address] [place] [address] Blanca Ge DO Medical Question/Miscellaneo us 11/10/2024 11:00 AM CDT Ancillary Procedure [facility] [address] [place] [address] Pelvic pain in female 11/09/2024 Results Follow-Up [address] [address] Blanca Ge DO 11/01/2024 2:04 PM CDT - 11/01/2024 11:59 PM CDT Hospital Encounter [facility] [address] [place] [address] Screening for malignant neoplasm of cervix; Screen for sexually transmitted diseases Discharge Disposition: Discharge to home or self care 11/01/2024 1:30 PM CDT Office Visit [facility] [address] [place] [address] Blanca Ge DO Encounter for annual routine gynecological examination (Primary Dx); Screen for sexually transmitted diseases; Screening for malignant neoplasm of cervix; Pelvic pain 11/01/2024 Orders Only [facility] [address] [place] [phone] Blanca Ge DO Pelvic pain in female [...] 6 9 Coy er Said DO Delivery Location:[facility] 2016 Term 40w 3d 0h 02m 0h 02m 2.98 kg (6 lb 9.1 oz) F Epidur al Livin g 9 9 TOSOV TONNY,B MEI GIRL BROOK E Stacia Maher MD Delivery Location:[facility] Last Filed Vital Signs Vital Sign Reading [...] results best viewed via link to PDF [facility] Department of Pathology [address] [place] [address] Note to Patients: This report may [...] Final Report Patient Name: JIN DELEON Address: [address] [place] [address] Gender: F : 1990 (Age: 34) Service: Location: [facility] : [id number] [facility] #: [id number] Patient Type: SPECIMEN Taken: 11/15/2024 Received: 11/16/2024 [...] determined by the Surgical Pathology Department at [facility] as part of an ongoing quality engineer medical device program and in compliance with federally mandated [...] characteristics determined by the Surgical Pathology Department [facility]. It has not been cleared or approved [...] ur Yellow Yellow Comment:Testing performed by : [address] [address] Clarity, ur Turbid(A) Clear [facility] Comment:Testing performed by : [facility], [address] [place] [address], [address] Specific gravity, ur 1.009 1.003 - 1.030 [facility] CH Comment:Testing performed by : [address], [address] pH, urine 7.0 CERNER CH Comment: Interpretive Data U rine pH is affected by diet, medications, systemic acid-base disturbances, and renal tubular function. pH may affect urinary stone formation. For example, urine pH below 6.0 may help reduce the tendency for calcium phosphate stones and pH greater than 6.0 may reduce the tendency for uric acid stone formation. Source: [facility] [employer] Current Interpretive Data was last revised on 2017 Testing performed by: [address] [address] Protein, ur ql Negative Negative [facility] Comment:Testing performed by : [address], [address] Glucose, ur ql Negative Negative [facility] Comment:Testing performed by : [address], [address] Ketones, ur Negative Negative [facility] CH Comment:Testing performed by : [address] [address] Bilirubin, ur 2+(A) Negative [facility] CH Comment:Testing performed by : [address], [address] Blood, ur Trace(A) Negative [facility] Comment:Testing performed by : [address], [address] Urobilinogen, ur <2.0 <2.0 mg/dL [facility] CH Comment:Testing performed by : [facility] [address] Nitrite, ur Positive(A) Negative [facility] Comment:Testing performed by : [address], [address] Leukocyte esterase, ur Negative Negative [facility] Comment:Testing performed by : [address], [address] UA reflex comment Reflex to microscopic UA will be performed. [facility] Comment:Testing performed by : [address], [address] Urine 11/15/2024 10:0 1 AM CDT 11/15/2024 6:50 PM CDT us Blanca Ge DO LAB MICROBIOLOGY - GENE RAL ORDERABLES Final Result [facility] [address] Department [place] [address] * (ABNORMAL) Urinalysis, microscopic only (11/15/2024 10:01 AM CDT) WBC, ur 0-5 0 - 5 /HPF Comment:Testing performed by : [address], [address] RBC, ur 0-2 0 - 2 /HPF [facility] Comment:Testing performed by : [address], [address] Epithelial cells, squamous, ur 1-5 0 - 5 /HPF [facility] Comment:Testing performed by : [address], [address] Mucous, ur Present(A) [facility] Comment:Testing performed by : [address], [address] Culture Reflex Comment Reflex conditions for urine culture (WBC >10) not met. [facility] Comment:Testing performed by : [address], [address] Urine 11/15/2024 10:0 1 AM CDT 11/15/2024 9:21 PM CDT us Blanca Ge DO LAB URINE ORDERABLES Fi nal Result [facility] [address] Department [place] [address] * US Pelvis W Endovaginal [...] Del Rosario M.D. CH: AMANDA Report ID: [id number] Reading Location: [id number] Procedure Note Neymar Del Rosario Jr., MD [...] Del Rosario M.D. CH: AMANDA Report ID: [id number] Reading Location: [place] [address] us Blanca Ge DO [facility] [place] [place] US PROCEDURES Final Result * (ABNORMAL) High Risk HPV DNA Detection with Genotyping (Molecular component) (11/01/2024 3:50 PM CDT) HPV HR 16 Not Detected Not Detected [facility] Comment:Testing performed by : [facility], [address] [place]., [address] HPV HR 18 Not Detected Not Detected [facility] Comment:Testing performed by : [facility], [address] [place]., [address] HPV HR Non 16/18 Detected(A) Not Detected [...] this test have been verified by the [facility] Molecular Infectious Disease laboratory. Correlate with separately reported cytology results, as applicable. Interpretive data last revised 23 Testing performed by: [facility], [address] [place]., [address] Endocervical 11/01/2024 3:50 PM CDT 11/02/2024 2:06 PM CDT Narrative [facility] - 11/04/2024 4:59 AM CDT Clinical history and diagnosis->Liquid-based PAP test with high risk HPV test- Z12.4 Number of vials->1 Testing type->Screening Last menstrual period (date if known)->10/20/24 Contraceptive use->IUD Blanca Ge DO LAB BODY FLUIDS AND STO OLS ORDERABLES Final Result [facility] [address] [address] Department [place] [address] [facility] * N. gonorrhoeae/C. trachomatis Amplification Thin prep-Endocervical (11/01/2024 3:50 PM CDT) C. trachomatis Not Detected [facility] Comment:Testing performed by : [facility], [address] [place] [address]., [address] N. gonorrhoeae Not Detected [facility] Comment: Interpretive Data This assay detects Chlamydia trachomatis and Neisseria gonorrhoeae by nucleic acid amplification testing (NAAT). This assay has been cleared by the [place] Food and Drug administration. The performance characteristics of this test have been verified by the [facility] Molecular Infectious Disease laboratory. The performance characteristics of this test have not been evaluated in individuals less than 14 years of age. Current Interpretive Data was last revised on 2023. Testing performed by: [facility], [address] [place]., [address] Thin prep-Endocervica l 11/01/2024 3:50 PM CDT 11/02/2024 2:06 PM CDT Blanca Ge LAB MICROBIOLOGY - GENE RAL ORDERABLES Final Result Performing Organization Address City/[facility]/ZIP Co de Phone Number [facility] [address] [address] Department [place] [address] [facility] * Trichomonas vaginalis PCR Thin prep-Endocervical (11/01/2024 3:50 PM CDT) Trichomonas DNA Not Detected [facility] Comment: Interpretive Data This assay detects Trichomonas vaginalis by nucleic acid amplification testing (NAAT). This assay has been cleared by the [place] Food and Drug administration. The performance characteristics of this test have been verified by the [facility] Molecular Infectious Disease laboratory. The performance of this test has not been evaluated in individuals less than 18 years of age. Current Interpretive Data was last revised on 2023. Testing performed by: [facility], [address] [place]., [address] Thin prep-Endocervica l 11/01/2024 3:50 PM CDT 11/02/2024 2:06 PM CDT Blanca Ge LAB MICROBIOLOGY - GENE RAL ORDERABLES Final Result Performing Organization Address City/[facility]/ZIP Co de Phone Number [facility] [address] [address] [place] [address] [facility] * (ABNORMAL) Pap and High Risk HPV and Genotyping (Cytology Component) (11/01/2024 11:04 AM CDT) Thin prep (Pap test) 11/01/2024 11:04 AM CDT 11/01/2024 11:04 AM CDT Narrative PATHOLOGY CH - 11/04/2024 9:35 PM CDT [facility] Department of Pathology [address] [place], [place] [id number] Final Report with Addendum Note to Patients: [...] the details. Patient Name: JIN DELEON Address: [address] [place] [address] Gender: F : 1990 (Age: 34) Service: Location: N : [id number] Hospital #: [id number] Patient Type: [facility] SPECIMEN Taken: 11/01/2024 Received: 11/01/2024 Accessioned:: 11/02/2024 [...] this test have been verified by the [facility] Molecular Infectious Disease laboratory. Correlate with reported [...] determined by the Surgical Pathology Department at [facility] as part of an ongoing quality engineer medical device program and in compliance with federally mandated [...] characteristics determined by the Surgical Pathology Department [facility]. It has not been cleared or approved by the [place]. [place]. Food and Drug Administration. us Blanca Ge DO LAB CYTOLOGY ORDERABLES Final Result PATHOLOGY [address] [place] [address] from Last 3 Months Insurance [employer] Care Teams Heater Installer Relationship Specialty Start Date End Date Unknown, Notinfile PCP - General 09/22/23
--- OUTSIDE RECORDS SUMMARY | 2024-12-24 14:02 | XMS_ITS | Referral Summary ---
Author Organization [facility] Address [address] [place] [address] Care Team Providers Care Software Support Representative Name Role Phone Unknown, Notinfile Primary Care Provider Unavail able Encounters Date Type Department Care Team Description 12/11/2024 5:55 PM CDT E-Visit [address] [address] Cierra Walsh, SURINDER Your Medications 12/11/2024 Patient Self-Triage [facility]/ Physicians [address] [place] [phone] Mychart, Generic Provider 11/27/2024 5:00 PM CDT Telemedicine [address] [address] Paula Marquez, SURINDER Recurrent cold sores (Primary Dx) 11/27/2024 Patient Self-Triage [facility]/ Physicians [address] [place] [address] Mychart, Generic Provider 11/26/2024 Patient Self-Triage [facility]/ Physicians [address] [place] [address] Mychart, Generic Provider 11/26/2024 10:45 AM CDT E-Visit [address] [address] Paula Marquez, SURINDER Your Medications 11/26/2024 Patient Self-Triage [facility]/ Physicians [address] [place] [phone] Mychart, Generic Provider 11/18/2024 Results [place] [address] [place] [address] Blanca Ge, 11/16/2024 Results Follow-[place] [address] [place] [address] Blanca Ge DO 11/15/2024 3:43 PM CDT - 11/15/2024 11:59 PM CDT Hospital Encounter [facility] [address] [place] [address] Discharge Disposition: Discharge to home or self care 11/15/2024 2:10 PM CDT Lab [facility] [address] [place] [address] Dysuria 11/15/2024 Orders Only [facility] [address] [place] [address] Blanca Ge DO Dysuria (Primary Dx) 11/15/2024 1:20 PM CDT Procedure visit [facility] [address] [place] [address] Blanca Ge DO 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) (Primary Dx) 11/11/2024 Telephone [facility] [address] [place] [address] Blanca Ge DO Medical Question/Miscellaneo us 11/10/2024 11:00 AM CDT Ancillary Procedure [facility] [address] [place] [address] Pelvic pain in female 11/09/2024 Results Follow-[place] [address] [place] [address] Blanca Ge DO 11/01/2024 2:04 PM CDT - 11/01/2024 11:59 PM CDT Hospital Encounter [facility] [address] [place] [address] Screening for malignant neoplasm of cervix; Screen for sexually transmitted diseases Discharge Disposition: Discharge to home or self care 11/01/2024 Orders Only [facility] [address] [place] [address] Blanca Ge DO Pelvic pain in female (Primary Dx) 11/01/2024 1:30 PM CDT Office Visit [facility] [address] [place] [address] Blanca Ge DO Encounter for annual routine [...] AM CDT Narrative 11/17/2024 6:08 PM CDT [facility] results best viewed via link to PDF [facility] Department of Pathology [address] [place] [address] Note to Patients: This report may [...] Final Report Patient Name: JIN DELEON Address: [address] [place] [address] Gender: F : 1990 (Age: 34) Service: Location: N : [id number] [facility] #: [id number] Patient Type: SPECIMEN Taken: 11/15/2024 Received: 11/16/2024 [...] determined by the Surgical Pathology Department at [facility] as part of an ongoing quality cloth tester program and in compliance with federally mandated [...] characteristics determined by the Surgical Pathology Department [facility]. It has not been cleared or approved [...] ur Yellow Yellow Comment:Testing performed by : [address] [address] Clarity, ur Turbid(A) Clear CERNER CH Comment:Testing performed by : [address], [address] Specific gravity, ur 1.009 1.003 - 1.030 CERNER CH Comment:Testing performed by : [address], [address] pH, urine 7.0 CERNER Comment: Interpretive Data U rine pH is affected by diet, medications, systemic acid-base disturbances, and renal tubular function. pH may affect urinary stone formation. For example, urine pH below 6.0 may help reduce the tendency for calcium phosphate stones and pH greater than 6.0 may reduce the tendency for uric acid stone formation. Source: [facility] iKONVERSE Current Interpretive Data was last revised on 2017 Testing performed by: [address] [address] Protein, ur ql Negative Negative CERNER CH Comment:Testing performed by : [address] [address] Glucose, ur ql Negative Negative C[facility]ER CH Comment:Testing performed by : [address] [address] Ketones, ur Negative Negative C[facility]ER CH Comment:Testing performed by : [address] [address] Bilirubin, ur 2+(A) Negative [facility] Comment:Testing performed by : [facility], [address] [place] [address]., [address] Blood, ur Trace(A) Negative [facility] Comment:Testing performed by : [address] [address] Urobilinogen, ur <2.0 <2.0 mg/dL [facility] Comment:Testing performed by : [address] [address] Nitrite, ur Positive(A) Negative [facility] Comment:Testing performed by : [address] [address] Leukocyte esterase, ur Negative Negative [facility] Comment:Testing performed by : [address], [address] UA reflex comment Reflex to microscopic UA will be performed. [facility] Comment:Testing performed by : [address], [address] Urine 11/15/2024 10:0 1 AM CDT 11/15/2024 6:50 PM CDT Blanca Ge DO LAB MICROBIOLOGY - GENE RAL ORDERABLES Final Result [facility] [address] [place] [address] * (ABNORMAL) Urinalysis, microscopic only (11/15/2024 10:01 AM CDT) WBC, ur 0-5 0 - 5 /HPF Comment:Testing performed by : [address] [address] RBC, ur 0-2 0 - 2 /HPF [facility] Comment:Testing performed by : [address] [address] Epithelial cells, squamous, ur 1-5 0 - 5 /HPF [facility] Comment:Testing performed by : [address], [address] Mucous, ur Present(A) [facility] Comment:Testing performed by : [address] [address] Culture Reflex Comment Reflex conditions for urine culture (WBC >10) not met. [facility] PATEL Comment:Testing performed by : [facility], [address] [place]., [address] Urine 11/15/2024 10:0 1 AM CDT 11/15/2024 9:21 PM CDT us Blanca Ge DO LAB URINE ORDERABLES Fi nal Result [facility] PATEL [address] [facility] [place] [address] * US Pelvis W Endovaginal (11/10/2024 11:57 [...] Del Rosario M.D. CH: AMANDA Report ID: [id number] Reading Location: [id number] Procedure Note Neymar Del Rosario Jr., MD [...] Del Rosario M.D. CH: AMANDA Report ID: [id number] Reading Location: [id number] Blanca Ge DO [facility] US PROCEDURES Final Result * (ABNORMAL) High Risk HPV DNA Detection with Genotyping (Molecular component) (11/01/2024 3:50 PM CDT) HPV HR 16 Not Detected Not Detected [facility] Comment:Testing performed by : [facility], [address] [facility]., [address] HPV HR 18 Not Detected Not Detected [facility] PATEL Comment:Testing performed by : [facility], [address] [place]., [address] HPV HR Non 16/18 Detected(A) Not Detected [...] this test have been verified by the [facility] Molecular Infectious Disease laboratory. Correlate with separately reported cytology results, as applicable. Interpretive data last revised 23 Testing performed by: [facility], [address] [place]., [address] Endocervical 11/01/2024 3:50 PM CDT 11/02/2024 2:06 PM CDT Charlie ELENA CH - 11/04/2024 4:59 AM CDT Clinical history and diagnosis->Liquid-based PAP test with high risk HPV test- Z12.4 Number of vials->1 Testing type->Screening Last menstrual period (date if known)->10/20/24 Contraceptive use->IUD Blanca Ge DO LAB BODY FLUIDS AND STO OLS ORDERABLES Final Result [facility] [address] [address] [place] [address] [facility] * N. gonorrhoeae/C. trachomatis Amplification Thin prep-Endocervical (11/01/2024 3:50 PM CDT) C. trachomatis Not Detected [facility] Comment:Testing performed by : [facility], [address] [place]., [address] N. gonorrhoeae Not Detected [facility] Comment: Interpretive Data This assay detects Chlamydia trachomatis and Neisseria gonorrhoeae by nucleic acid amplification testing (NAAT). This assay has been cleared by the [place] Food and Drug administration. The performance characteristics of this test have been verified by the [facility] Molecular Infectious Disease laboratory. The performance characteristics of this test have not been evaluated in individuals less than 14 years of age. Current Interpretive Data was last revised on 2023. Testing performed by: [facility], [address] [place]., [address] Thin prep-Endocervica l 11/01/2024 3:50 PM CDT 11/02/2024 2:06 PM CDT Blanca Ge DO LAB MICROBIOLOGY - GENE RAL ORDERABLES Final Result Performing Organization Address City/[facility]/ZIP Co de Phone Number [facility] [address] [address] [place] [address] [facility] * Trichomonas vaginalis PCR Thin prep-Endocervical (11/01/2024 3:50 PM CDT) Trichomonas DNA Not Detected [facility] Comment: Interpretive Data This assay detects Trichomonas vaginalis by nucleic acid amplification testing (NAAT). This assay has been cleared by the [place] Food and Drug administration. The performance characteristics of this test have been verified by the [facility] Molecular Infectious Disease laboratory. The performance of this test has not been evaluated in individuals less than 18 years of age. Current Interpretive Data was last revised on 2023. Testing performed by: [facility], [address] [place]., [address] Thin prep-Endocervica l 11/01/2024 3:50 PM CDT 11/02/2024 2:06 PM CDT Blanca Ge DO LAB MICROBIOLOGY - GENE RAL ORDERABLES Final Result Performing Organization Address City/[facility]/ZIP Co de Phone Number [facility] [address] [facility] [place] [address] [facility] * (ABNORMAL) Pap and High Risk HPV and Genotyping (Cytology Component) (11/01/2024 11:04 AM CDT) Thin prep (Pap test) 11/01/2024 11:04 AM CDT 11/01/2024 11:04 AM CDT Narrative PATHOLOGY CH - 11/04/2024 9:35 PM CDT [facility] Department of Pathology [address] [place] [id number] Final Report with Addendum Note to Patients: [...] the details. Patient Name: JIN DELEON Address: [address] [place] [address] Gender: F : 1990 (Age: 34) Service: Location: [facility] : [id number] [facility] #: [id number] Patient Type: [facility] SPECIMEN Taken: 11/01/2024 Received: 11/01/2024 Accessioned:: [...] this test have been verified by the [facility] Molecular Infectious Disease laboratory. Correlate with reported [...] determined by the Surgical Pathology Department at [facility] as part of an ongoing quality cloth tester program and in compliance with federally mandated [...] characteristics determined by the Surgical Pathology Department [facility]. It has not been cleared or approved by the [place]. [place]. Food and Drug Administration. Blanca Ge DO LAB CYTOLOGY ORDERABLES Final Result PATHOLOGY [address] [place] [address] from Last 3 Months Insurance [facility] AETNA [facility] Care Teams Software Support Representative Relationship Specialty Start Date End Date Unknown, Notinfile PCP - General 09/22/23
--- OUTSIDE RECORDS SUMMARY | 2024-12-24 14:02 | XMS_ITS | Clinical Summary ---
Author Organization [facility] [employer] Address [address] [place] [address] Care Team Providers Care Universal Grinder Operator Name Role Phone Unavailable Primary Care Provider Unavailabl e Source Comments [facility] [employer],non-owned Affiliates and Associated Physician Practices is amultiple site organization consisting of ambulatory clinics and hospital sitesin [place], [place], [place] and [place]. This disclosure is being madepursuant to the Care Everywhere program and may not contain all information available regarding this patient. 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 Gender Identity Not on file Sexual Orientation Not on file Last Filed Vital Signs Vital Sign Reading Time Taken Comments Blood Pressure 118/76 09/25/2018 1:44 PM STRAW HAT BRIM CUTTER OPERATOR Pulse 113 11/18/2017 12:19 PM CDT Temperature 36.8 C (98.2 F) 11/18/2017 12:19 PM CDT Respiratory Rate 16 11/18/2017 12:19 PM CDT Oxygen Saturation 98% 11/18/2017 12:19 PM CDT Inhaled Oxygen Concentration - - Weight 61.2 kg (135 lb) 09/25/2018 1:44 PM STRAW HAT BRIM CUTTER OPERATOR Height 165.1 cm (5' 5 ) 09/25/2018 1:44 PM STRAW HAT BRIM CUTTER OPERATOR Body Mass Index 22.47 09/25/2018 1:44 PM STRAW HAT BRIM CUTTER OPERATOR Plan of Treatment Health Maintenance Due Date [...] HIV-1 HIV-2 ANTIGEN/ANTIBODY Routine 06/26/2016 4:04 PM STRAW HAT BRIM CUTTER OPERATOR from Last 3 Months or Most Recently Relevant to Health Maintenance Results * HIV-1 HIV-2 ANTIGEN/ANTIBODY (06/26/2016 4:04 PM STRAW HAT BRIM CUTTER OPERATOR) Pathologist [facility] HIV Antigen/Antibody 4th Generation NON-REACT KANE NON-REACT [facility] ([facility]) Comment: HIV-1 antigen and HIV-1/HIV-2 antibodies were [...] purpose. For additional information please refer to http://education.Skulpt/faq/QHV849 (This link is being provided for informational/ educational purposes only.) The performance of this assay has not been clinically validated in patients less than 2 years old. Test Performed at: [facility] [address] [place] [address] MARCUS ROMERO DO,MPH 06/26/2016 4:04 PM STRAW HAT BRIM CUTTER OPERATOR 06/26/2016 4:04 PM STRAW HAT BRIM CUTTER OPERATOR Stacia Mccabe MD LAB - HEMATOLOGY ORDERABLES Edit ed Result - Final [facility] ([facility]) [address] from Last 3 Months or Most Recently Relevant to Health Maintenance Insurance [facility] [employer] [facility] Advance Directives * Full Code (Latest Code [...]
--- OUTSIDE RECORDS SUMMARY | 2024-12-24 14:02 | XMS_ITS | Encounter Summary ---
Author Organization [facility] Address [address] [place] [place] [address] Care Team Providers Care Painter Barrel Name Role Phone Unavailable Primary Care Provider Unavailabl e Reason for Visit * Reason Onset Date Comments MEDICATION REFILL 12/28/2019 Encounter Details Date Type Department Care Team (Late st Contact Info) Description 12/28/2019 Refill [facility]/ EVALUATION UNIT 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
--- OUTSIDE RECORDS SUMMARY | 2024-12-24 14:02 | XMS_ITS | Clinical Summary ---
Author Organization [facility] Address [address] [place] [address] Phone Care Team Providers Care Family Services Specialist Name Role Phone Unavailable Primary Care Provider Unavailabl e Social History Tobacco Use Types Packs/Day Years Used Date Smoking Tobacco: Never Assessed Comments Unknown Sex and Gender Information Value Date Recorded Sex Assigned at Not on file Legal Sex Female 11:58 AM GLASS CUTTER HELPER Gender Identity Not on file Sexual Orientation [...] to complete this topic Insurance MEDICAID AETNA [facility]
--- OUTSIDE RECORDS SUMMARY | 2024-12-24 14:02 | XMS_ITS | Encounter Summary ---
Author Organization [facility] Address [address] [place] [address] Care Team Providers Care Accounts Payable Lead Name Role Phone Unavailable Primary Care Provider Unavailabl e Reason for Visit * Reason Onset Date Comments Question 12/30/2017 Encounter Details Date Type Department Care Team (Late st Contact Info) Description 12/30/2017 Telephone [facility] [address] [place] [address] Stacia Mccabe MD [address] [facility] [address] [place] [address] Question Social History Tobacco Use Types Packs/Day Years Used Date Smoking Tobacco: Never Smokeless Tobacco: Never Alcohol Use Standard Drinks/Week Comments No 0 (1 standard drink = 0.6 oz pur e alcohol) Comments No Sex and Gender Information Value Date Recorded Sex Assigned at Not on file Legal 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 Pt callback# [phone] documented in this encounter Plan of Treatment Not on file documented as of this encounter Visit Diagnoses Not on filedocumented in this encounter
[2024-12-24 14:30] LABS: Basophils Percent Auto 0.5 % (0.2-1.2); Eosinophils Absolute Auto 0.1 K/mm3 (0-0.3); Eosinophils Percent Auto 1.2 % (0-4.4); Hematocrit 39.4 % (37.0-47.0); Immature Granulocyte Absolute 0.03 K/mm3 (0.00-0.031); Immature Granulocyte Percent A 0.5 % (0-0.5); Lymphocytes Absolute Auto 1.53 K/mm3 (0.9-3.2); Lymphocytes Percent Auto 23.3 % (18.3-44.2); Mean Corpuscular Hemoglobin 29.6 pg (26-34); Mean Corpuscular Volume 89.7 fl (80-100); Monocytes Absolute Auto 0.5 K/mm3 (0.1-0.6); Monocytes Percent Auto 7.8 % (2.6-8.5); Neutrophils Absolute Auto 4.4 K/mm3 (1.3-6.7); Neutrophils Percent Auto 66.7 % (45.5-73.1); Platelet Count Result 220 k/mm3 (150-375); Red Blood Count 4.39 M/mm3 (4.2-5.4); Red Cell Distribution Width 12.3 % (11.5-14.5); White Blood Count 6.6 K/mm3 (4.5-10.0)
[2024-12-24 14:40] LABS: Add Urine Microscopic? YES; Appearance Urine Clear (Clear); Bacteria Urine 1+ /hpf; Bilirubin Urine Negative (Negative); Blood Urine 1+ (Negative); Color Urine Yellow (Yellow); Glucose Urine UA Negative (Negative); Ketones Urine Negative (Negative); Leukocyte Esterase Ur 1+ LEU/UL (Negative); Need Manual Microscopic Reviewed; Nitrate Urine Negative (Negative); Non Pathogenic Casts 0-2; Protein Urine Negative (Negative); RBC Urine 0-2 /hpf (0-2); Specific Grav Ur 1.003 (1.001-1.035); Squamous Epithelial Cell Urine None Seen /hpf (Few); Urobilinogen Urine 0.2 mg/dL (<2.0); pH Urine 6.5 (5.0-9.0)
[2024-12-24 14:41] LABS: BEDSIDEPREGUCG Negative (Negative)
[2024-12-24 14:42] LABS: Alanine Aminotransferase 30 U/L (6-35); Albumin Level 4.7 g/dL (3.5-5.1); Alkaline Phosphatase 65 U/L (38-126); Anion Gap 8 mmol/L (4-12); Aspartate Amino Transferase 34 U/L (14-36); Bilirubin,Total 0.5 mg/dL (0.2-1.3); Blood Urea Nitrogen 9 mg/dL (7-17); Calcium 9.2 mg/dL (8.4-10.2); Carbon Dioxide 27 mmol/L (22-30); Chloride 101 mmol/L (98-107); Estimated CRCL calculation 76 ml/min; Estimated Glomerular Filt Rate > 60; Glucose 86 mg/dL (65-110); Lipase 44 U/L (23-300); Potassium 3.9 mmol/L (3.4-5.0); Sodium 136 mmol/L (137-145)
[2024-12-24 15:52] VITALS: BP 116/78; PULSE 109; RESP 18; O2SAT 98
== END 2024-12-24 16:38 | disposition home or self-care (01) ==
PROVIDERS: Emergency Provider Emergency Medicine; PCP Family Medicine
DX: R50.9 Fever, unspecified (principal); R53.83 Other fatigue; F90.9 Attention-deficit hyperactivity disorder, unspecified type; Z84.1 Family history of disorders of kidney and ureter
CPT/HCPCS: 36415; 74177; 80053; 81001; 81025; 83690; 85025; 87086; 87186; 99284; Q9967